=== PATIENT | female | born 1990 | race Caucasian/White ===

== ENCOUNTER 2025-02-16 23:33 | Emergency (ER) | payer BC, SELFPAY ==
[2025-02-16 23:35] VITALS: BP 128/84; PULSE 86; RESP 20; TEMP 36.1; O2SAT 100; BMI 21.2
[2025-02-17 00:07] LABS: Appearance Urine Clear (Clear)
--- NOTE | 2025-02-17 00:09 | ED.ABDPAIN ---
HPI - Abdominal Pain General Time Seen by Provider: 00:09 Date Seen: 02/17/25 Chief Complaint: Abdominal Pain Stated Complaint: Left side abdominal pain Time Seen by Provider: 02/17/25 00:09 Source: patient History of Present Illness HPI narrative: Patient is a 34 year old female with significant past history who presents to the emergency department for evaluation of abdominal pain. Patient reports that around 11:00 p.m. tonight she had sudden onset of severe left-sided abdominal pain and flank/back pain. Patient states that she was getting ready for bed when pain started. Patient describes the pain as a severe constant pain with intermittent sharp stabbing pains. Patient reports nausea and vomiting prior to arrival. Denies any fever, chills, chest pain, cough, shortness of breath. Patient denies any dysuria or hematuria however does report some urinary urgency/frequency. No medications prior to arrival, no other complaints. Related Data Home Medications ?Medication ?Instructions ?Recorded ?Confirmed acetaminophen [Tylenol] PO 06/24/24 06/24/24 Allergies Allergy/AdvReac Type Severity Reaction Status Date / Time No Known Drug Allergies Allergy Verified 06/24/24 09:12 Review of Systems Narrative Past medical history, past surgical history, medications, allergies, family history, and social history were reviewed with the patient. No additional pertinent items. A medically appropriate review of systems was performed with pertinent positives and negatives noted in HPI, all other systems negative. Exam Narrative: Exam Narrative: General: Afebrile, in distress secondary to pain, lying on her stomach HEENT: Normocephalic, atraumatic, conjunctiva normal. MMM Neck: non-tender, supple Cardio: regular rate. regular rhythm Resp: Normal work of breathing, no respiratory distress, lungs clear bilaterally, no wheezing, rhonchi, rales Chest/Back: no visual signs of trauma, no midline tenderness,+ left CVA TTP Abdomen: soft, non distension, no tenderness, no rebound, guarding, no peritoneal signs Neuro: alert and fully oriented. CN II-XII grossly intact. Grossly normal strength and sensation in all extremities. MSK: no deformities. Normal range of motion Integumentary/Skin: no rash visualized, normal color Psych: normal affect, normal behavior Const: Vital Signs, click to edit/add: Vital Signs - 24 hr 02/16/25 23:35 02/17/25 01:36 02/17/25 02:33 Temperature 97.0 F L Pulse Rate 88 Pulse Rate [Left P ulse Oximeter] 86 68 Respiratory Rate 20 16 Blood Pressure Blood Pressure [Ri ght Upper Arm] 128/84 124/64 Pulse Oximetry 100 99 97 Oxygen Delivery Me thod Room Air Room Air 02/17/25 03:05 02/17/25 03:06 02/17/25 03:08 Temperature Pulse Rate 97 95 96 Pulse Rate [Left P ulse Oximeter] Respiratory Rate Blood Pressure 122/80 Blood Pressure [Ri ght Upper Arm] Pulse Oximetry 94 98 100 Oxygen Delivery Me thod Course Course ED Course: Patient is a 34 year old female with significant past history who presents to the emergency department for evaluation of abdominal pain. Upon arrival patient is nontoxic appearing, afebrile, in distress secondary to pain. Patient hemodynamically stable vital signs within normal limits. Differential diagnosis includes but is not limited to versus ectopic versus cystitis versus pyelonephritis versus nephrolithiasis versus diverticulitis versus colitis versus pancreatitis versus less likely appendicitis versus obstruction among others. Upon arrival patient was treated with IV Zofran, Toradol, 1 L IV fluid bolus. Comprehensive labs remarkable with no leukocytosis white blood cell count 7.9, hemoglobin 10.7, urinalysis with negative test, no evidence of acute infection, positive for blood. Potassium slightly low at 3.3, otherwise no acute metabolic or electrolyte abnormality, no transaminitis. Potassium replaced in ED. I personally reviewed interpreted CT scan them and pelvis which demonstrates punctate stone at the ureterovesicular junction with no significant hydroureter nephrosis. There is a 3.5 cm heterogeneous density in the right ovary possibly a hemorrhagic cyst. Patient treated with additional dose of zofran, IV dilaudid for pain. Given patient's abdominal pain, vomiting, will proceed with ultrasound to rule out torsion however suspect patient's symptoms are most likely secondary to stone. I personally reviewed and interpreted pelvic ultrasound which demonstrates multiple bilateral complex appearing cyst. Overall low clinical concern for TOA/infection. Patient's clinical presentation is most likely consistent with ureteral stone. I discussed results with patient at this time patient is agreeable to follow-up, recommend repeat ultrasound in 6-12 weeks. I discussed results with patient on re-evaluation patient reports significant improvement of symptoms, tolerating p.o. water and crackers without difficulty. Patient feels comfortable discharge home with close outpatient follow-up. Will discharge with Tylenol, ibuprofen, oral hydration, urinary strainer. Patient sent with [facility] prescriptions for Zofran, oxycodone as needed for severe pain. Encouraged close outpatient follow-up and strict return precautions discussed if high fever, severe pain, persistent vomiting, or any worsening symptoms. Patient understands and agrees the plan. Vital Signs Vital signs: Initial Vital Signs Temperature 97.0 F L 02/16/25 23:35 Temperature Source Temporal Artery Scan 02/16/25 23:35 Pulse Rate 86 02/16/25 23:35 Pulse Rhythm Regular 02/16/25 23:35 Respiratory Rate 20 02/16/25 23:35 Blood Pressure 128/84 02/16/25 23:35 Blood Pressure Mean 98 02/16/25 23:35 Blood Pressure Position Sitting 02/16/25 23:35 Pulse Oximetry 100 02/16/25 23:35 Oxygen Delivery Method Room Air 02/16/25 23:35 Vital Signs Temperature 97.0 F L 02/16/25 23:35 Pulse Rate 86 02/16/25 23:35 Respiratory Rate 20 02/16/25 23:35 Blood Pressure 128/84 02/16/25 23:35 Pulse Oximetry 100 02/16/25 23:35 Oxygen Delivery Method Room Air 02/16/25 23:35 Temperature 97.0 F L 02/16/25 23:35 Pulse Rate 96 02/17/25 03:08 Respiratory Rate 16 02/17/25 01:36 Blood Pressure 122/80 02/17/25 03:08 Pulse Oximetry 100 02/17/25 03:08 Oxygen Delivery Method Room Air 02/17/25 01:36 Medications Administered Medications: Generic Name Dose Route Start Last Admin Trade Name Freq PRN Reason Stop Dose Admin Ondansetron HCl 4 mg 02/17/25 02:10 02/17/25 02:16 Ondansetron 2 Mg/Ml Inj IVP 02/17/25 02:11 4 mg ONCE ONE Administration Potassium Chloride 40 meq 02/17/25 03:13 02/17/25 03:39 Potassium Chloride 10 Meq Capsule Er PO 02/17/25 03:14 40 meq ONCE ONE Administration Tamsulosin HCl 0.4 mg 02/17/25 03:13 02/17/25 03:39 Tamsulosin Hcl 0.4 Mg Capsule PO 02/17/25 03:14 0.4 mg ONCE ONE Administration Discontinued Medications Generic Name Dose Route Start Last Admin Trade Name Baldomero PRN Reason Stop Dose Admin Hydromorphone HCl 0.5 mg 02/17/25 00:46 02/17/25 02:16 Hydromorphone 0.5 Mg/0.5 Ml Inj IVP 02/17/25 00:47 0.5 mg ONCE ONE Administration Sodium Chloride 1,000 mls @ 1,000 mls/hr 02/17/25 00:30 02/17/25 01:50 0.9 % Sodium Chloride 1000 Ml IV 02/17/25 01:29 Infused .Q1H W[facility] Infusion Ketorolac Tromethamine 15 mg 02/17/25 00:16 02/17/25 00:36 Ketorolac 15 Mg/Ml Inj IVP 02/17/25 00:17 15 mg ONCE ONE Administration Ondansetron HCl 4 mg 02/17/25 00:16 02/17/25 00:36 Ondansetron 2 Mg/Ml Inj IVP 02/17/25 00:17 4 mg ONCE ONE Administration MDM - Abdominal Pain Lab Data Labs: Lab Results 02/17/25 02/17/25 Range/Units 00:05 00:25 WBC 7.97 (4.50-11.00) K/uL RBC 4.19 (4.00-5.20) m/uL Hgb 10.7 L (12.0-16.0) gm/dL Hct 33.0 (33.0-51.0) % MCV 79 L (80-100) fL MCH 26 (26-34) pg MCHC 32 (32-36) gm/dL RDW Coeff of Red 14.8 (11.5-15.5) % Plt Count 317 (140-440) K/uL Neut % (Auto) 62.7 (42.0-72.0) % Lymph % (Auto) 26.3 (20-44) % [place] % (Auto) 6.5 (0.0-11.0) % Eos % (Auto) 4.0 (0.0-7.0) % Baso % (Auto) 0.4 (0.0-3.0) % Neut # (Auto) 4.99 (1.7-7.0) K/uL Lymph # (Auto) 2.10 (0.90-2.90) K/uL [place] # (Auto) 0.50 (0.00-0.90) K/UL Eos # (Auto) 0.32 (0.00-0.50) K/uL Baso # (Auto) 0.03 (0.00-0.30) K/uL Abs Immat Gran (auto) 0.01 (0.00-0.30) K/uL Imm/Tot Granulo (auto) 0.1 % Sodium 137 (135-149) mmol/L Potassium 3.3 L (3.6-5.1) mmol/L Chloride 104 (96-114) mmol/L Carbon Dioxide 25 (20-32) mmol/L Anion Gap 8 (7-15) mEq/L BUN 20 (5-24) mg/dL Creatinine 0.9 (0.5-1.5) mg/dL Estimated Creat Clear 69.00 Estimated GFR 86 ml/min Glucose 119 H (60-115) mg/dL Calcium 9.5 (8.4-10.6) mg/dL Total Bilirubin 1.1 (0.1-1.5) mg/dL AST 27 (12-35) U/L ALT 15 (4-35) U/L Alkaline Phosphatase 47 (40-150) U/L Total Protein 7.4 (6.0-8.3) g/dL Albumin 4.4 (3.3-5.0) g/dL Lipase 124 (23-300) U/L Urine Color Yellow (Yellow) Urine Appearance Clear (Clear) Urine pH 8.5 (5.0-8.5) Ur Specific [place] 1.015 (1.000-1.030) Urine Protein Negative (Negative) Urine Glucose (UA) Negative (Negative) Urine Ketones Negative (Negative) Urine Blood 2+ A (Negative) Urine Nitrite Negative (Negative) Urine Bilirubin Negative (Negative) Urine Urobilinogen 0.2 (0.2-1.0) Ur Leukocyte Esterase Negative (Negative) Urine RBC 10-25 A (0-2) Urine WBC 2-5 (0-5) Ur Squamous Epith Cells Few (None-Few) Amorphous Sediment Few A (None) Urine Bacteria Few A (None) Urine HCG, Qual Negative (Negative) Discharge Plan Discharge Clinical Impression: Left ureteral stone, Hypokalemia, Nausea & vomiting, Ovarian cyst Patient Disposition: Home, Self-Care Condition: Improved Additional Instructions: Please follow-up with your primary care provider in the next 3-5 days for further evaluation and follow-up. Please call to schedule an appointment. We also recommend following up for repeat pelvic ultrasound in 6-12 weeks regarding multiple bilateral complex cyst. Please rest, drink plenty of fluids. Please strain your urine. Please alternate taking ibuprofen 600 mg and Tylenol 1000 mg every 6 hours as needed for pain. If you alternate these 2 medications you should be taking something every 3 hours. Please take Zofran as needed for nausea and vomiting. Please take oxycodone 1 tablet every 4-6 hours as needed for severe pain. Please return to the emergency department if he develops high fever, severe pain, persistent vomiting, or any worsening symptoms. It was a pleasure taking care of you today. We hope you feel better soon. Prescriptions: No Action acetaminophen [Tylenol] PO Follow Up/Referrals: Provider,Not a Local [Primary Care Provider, Family Practice] Stand Alone Forms: [employer] Info Instructions
[2025-02-17 00:32] LABS: Hematocrit 33.0 % (33.0-51.0); Hemoglobin* 10.7 gm/dL (12.0-16.0); Immature Granulocytes Abs Auto 0.01 K/uL (0.00-0.30); Immature Granulocytes Pct Auto 0.1 %; Lymphocytes Absolute Auto 2.10 K/uL (0.90-2.90); Mean Corpuscular HGB Conc 32 gm/dL (32-36); Mean Corpuscular Hemoglobin 26 pg (26-34); Mean Corpuscular Volume 79 fL (80-100); RDW Coefficient of Variation % 14.8 % (11.5-15.5); Red Blood Count 4.19 m/uL (4.00-5.20); White Blood Count* 7.97 K/uL (4.50-11.00)
--- NOTE | 2025-02-17 00:33 | CRLHL7_ITS ---
For Patients: As a result of the Century Cures Act, medical imaging exams and procedure reports are released immediately into your electronic medical record. You may view this report before your referring provider. If you have questions, please contact your health care provider. INDICATION: Left flank pain, left abdominal pain. TECHNIQUE: CT abdomen and pelvis without contrast. COMPARISON: None. FINDINGS: Lower chest: Unremarkable. Liver: Normal in size and attenuation. No suspicious masses. Gallbladder and bile ducts: No stones or inflammation. No biliary dilatation. Pancreas: Unremarkable. No mass or inflammation. Spleen: Scattered calcified granulomata. Adrenal glands: Normal in size. No nodules. Kidneys: Punctate stone at the left ureterovesicular junction. No significant proximal hydroureteronephrosis. Unremarkable right kidney. GI tract: Unremarkable. Normal in caliber. No sign of mass or inflammation. Normal appendix. Vasculature: Abdominal aorta is normal in caliber. Lymph nodes: No lymphadenopathy. Peritoneum/Abdominal Wall: Unremarkable. No free air or significant free fluid. Pelvis: Unremarkable. No pelvic masses. Retroverted uterus. Bones: Mild dextroconvex curvature of the spine. IMPRESSION: 1. Punctate stone at the left ureterovesicular junction without significant associated proximal hydroureteronephrosis. 2. 3.5 cm heterogeneous mixed density lesion within right ovary, possibly a hemorrhagic cyst. This could be further evaluated with pelvic ultrasound, if clinical concern persists. Please note that all CT scans at this facility use dose modulation, iterative reconstruction, and/or weight-based dosing when appropriate to reduce radiation dose to as low as reasonably achievable. Dictated by Presley Cheek MD @ 02/17/2025 1:29:24 AM (Electronically Signed)
[2025-02-17 00:35] LABS: Slide Review Reflex No
[2025-02-17 00:36] LABS: Ur HCG Qualitative* Negative (Negative)
[2025-02-17] MEDS: ONDANSETRON 2 MG/ML inj 4 MG IVP ×2 (00:36→02:16)
[2025-02-17 00:42] LABS: Chloride* 104 mmol/L (96-114)
[2025-02-17 00:43] LABS: Albumin* 4.4 g/dL (3.3-5.0); Potassium* 3.3 mmol/L (3.6-5.1); Sodium* 137 mmol/L (135-149)
[2025-02-17 00:45] LABS: Alanine Aminotransferase* 15 U/L (4-35); Anion Gap 8 mEq/L (7-15); Aspartate Amino Transferase* 27 U/L (12-35); Blood Urea Nitrogen* 20 mg/dL (5-24); Carbon Dioxide* 25 mmol/L (20-32); Creatinine* 0.9 mg/dL (0.5-1.5); Est. Creatinine Clearance* 69.00; Estimated Glomerular Filt Rate 86 ml/min
[2025-02-17 00:46] LABS: Alkaline Phosphatase* 47 U/L (40-150); Bilirubin Total* 1.1 mg/dL (0.1-1.5); Calcium* 9.5 mg/dL (8.4-10.6); Glucose* 119 mg/dL (60-115); Total Protein* 7.4 g/dL (6.0-8.3)
[2025-02-17 01:36] VITALS: BP 124/64; PULSE 68; RESP 16; O2SAT 99
--- NOTE | 2025-02-17 02:16 | CRLHL7_ITS ---
For Patients: As a result of the Century Cures Act, medical imaging exams and procedure reports are released immediately into your electronic medical record. You may view this report before your referring provider. If you have questions, please contact your health care provider. Indication: Lower abdominal pain, right ovarian cyst on CT Technique: Transabdominal and transvaginal pelvic ultrasound. Grayscale and color Doppler imaging utilized. Spectral waveform analysis utilized. Comparison: Same day CT Findings: Uterus: 8.0 x 4.7 x 5.3 cm. No masses or other significant parenchymal abnormality appreciated. Endometrium: 11 mm. Fluid present. Slight heterogeneity and possible polyps. Right ovary: 6.0 x 3.5 x 4.0 cm. Complex debris-filled cyst measures 2.8 x 2.6 x 1.6 centimeters. Doppler flow detected. Left ovary: 5.8 x 3.3 x 3.2 cm. Complex debris-filled cyst measures 1.9 x 1.1 x 2.2 centimeters. Heterogeneous solid-appearing area measures 2.5 x 2.2 x 2.0 centimeters. Doppler flow detected. Other: Free fluid present. Impression: 1. Multiple bilateral complex appearing cysts with internal debris. Some of these may represent evolving an involuting hemorrhagic cysts but can be correlated with clinical and laboratory symptoms if there is concern for infection/TOA. Note is also made of a heterogeneous solid-appearing focus within the left ovary measuring 2.5 centimeters. Follow-up ultrasound in 6-12 weeks recommended. 2. Fluid and heterogeneity within the endometrium along with possible polyps, which can be reassessed on follow-up ultrasound. Dictated by Dk Miles MD @ 02/17/2025 3:47:34 AM (Electronically Signed)
[2025-02-17 02:33] VITALS: PULSE 88; O2SAT 97
[2025-02-17 03:05] VITALS: PULSE 97; O2SAT 94
[2025-02-17 03:06] VITALS: PULSE 95; O2SAT 98
[2025-02-17 03:08] VITALS: BP 122/80; PULSE 96; O2SAT 100
--- NOTE | 2025-02-17 03:10 | ED.NURSE ---
pt given water and crackers per MD. pt tolerated both
[2025-02-17] MEDS: TAMSULOSIN HCL 0.4 MG CAPSULE PO (03:39)
[2025-02-17] MEDS: POTASSIUM CHLORIDE 10 MEQ CAPSULE ER 40 MEQ PO (03:39)
== END 2025-02-17 04:13 | disposition home or self-care (01) ==
PROVIDERS: Emergency Provider Emergency Medicine
DX: N20.1 Calculus of ureter (principal); R11.2 Nausea with vomiting, unspecified; N83.201 Unspecified ovarian cyst, right side
CPT/HCPCS: 36415; 74176; 76830; 76856; 80053; 81001; 81025; 83690; 85025; 87086; 93976; 96374; 96375; 99284; 99285; A9270; J1171; J1885; J2405; J7030

== ENCOUNTER 2025-04-13 09:32 | Outpatient (CLI) | payer BC, SELFPAY | END 2025-04-13 09:33 | disposition home or self-care (01) | PROVIDERS: PCP Family Medicine; Visit Provider Family Medicine | DX: E87.6 Hypokalemia (principal); D64.9 Anemia, unspecified; R53.83 Other fatigue; Z13.6 Encounter for screening for cardiovascular disorders; Z13.21 Encounter for screening for nutritional disorder | CPT/HCPCS: 80053; 80061; 82607; 82728; 83540; 83550; 84443 ==

== ENCOUNTER 2025-04-14 12:00 | Outpatient (CLI) | payer BC, SELFPAY ==
--- NOTE | 2025-04-14 12:15 | CRLHL7_ITS ---
For Patients: As a result of the Century Cures Act, medical imaging exams and procedure reports are released immediately into your electronic medical record. You may view this report before your referring provider. If you have questions, please contact your health care provider. INDICATION: Follow-up ovarian cysts COMPARISON: 02/17/2025 TECHNIQUE: 2D mratínez-scale and color Doppler images were acquired of the pelvis using a transabdominal and transvaginal approach. Transvaginal imaging performed to better visualize the endometrial stripe and ovaries. FINDINGS: Sonographic images demonstrate a normal size and smooth outer contour of the uterus. Uterus measures 8.0 cm in length by 4.4 cm in AP diameter by 5.8 cm in transverse dimension. The myometrium has a normal uniform echotexture. The endometrial lining measures 13.3 mm in composite thickness. The right ovary measures 6.0 x 3.2 x 4.2 cm in size and the left ovary measures 3.8 x 5.9 x 4.0 cm. The ovaries demonstrate normal arterial and venous blood flow on color Doppler analysis. There are no suspicious fluid collections within the cul-de-sac. There is a complex left ovarian cyst which measures 2.3 x 1.8 x 2.3 cm without internal blood flow and has the appearance of a hemorrhagic cyst, previously measuring 2.5 cm. There is a complex left ovarian cyst with diffuse low-level internal echoes measuring 3.5 x 1.9 x 2.3 cm. No internal blood flow. A simple circumscribed right ovarian cyst measures 2.6 x 3.1 x 2.7 cm. An additional right ovarian cyst is present which contains thin internal septations and measures 2.9 x 1.7 x 2.6 cm. No internal blood flow. IMPRESSION: Benign bilateral ovarian cysts including a hemorrhagic cyst within each ovary, a simple cyst on the right and an endometrioma on the left. Dictated by Tod White MD @ 04/14/2025 2:29:26 PM (Electronically Signed)
== END 2025-04-14 12:01 | disposition home or self-care (01) ==
LOC: US 12:01
PROVIDERS: PCP Family Medicine; Visit Provider Family Medicine
DX: N83.291 Other ovarian cyst, right side (principal); N83.292 Other ovarian cyst, left side
CPT/HCPCS: 76830; 76856

== ENCOUNTER 2025-06-02 10:44 | Outpatient (CLI) | payer BC, SELFPAY ==
[2025-06-04 19:10] LABS: HPV Source Cervical/Vag
[2025-06-07 08:41] LABS: Pap Test Digital Imaging Done
== END 2025-06-02 10:45 | disposition home or self-care (01) ==
PROVIDERS: PCP Family Medicine; Visit Provider Family Medicine
DX: Z12.4 Encounter for screening for malignant neoplasm of cervix (principal)
CPT/HCPCS: 87624; 87625; 88141; 88142; 88175

== ENCOUNTER 2025-06-15 09:07 | Outpatient (CLI) | payer BC, SELFPAY | END 2025-06-15 09:08 | disposition home or self-care (01) | LOC: NFLDREF 06-17 16:22 | PROVIDERS: PCP Family Medicine; Referring Provider Family Medicine; Visit Provider Family Medicine | DX: D50.9 Iron deficiency anemia, unspecified (principal) | CPT/HCPCS: 82728; 83540; 83550 ==

== ENCOUNTER 2025-08-10 09:51 | Outpatient (CLI) | payer BC, SELFPAY | END 2025-08-10 09:52 | disposition home or self-care (01) | LOC: NFLDREF 09:52 | PROVIDERS: PCP Family Medicine; Visit Provider Physician Assistant | DX: D50.9 Iron deficiency anemia, unspecified (principal) | CPT/HCPCS: 82728 ==

== ENCOUNTER 2025-08-10 11:57 | Outpatient (CLI) | payer BC, SELFPAY ==
--- NOTE | 2025-08-10 12:15 | CRLHL7_ITS ---
For Patients: As a result of the Century Cures Act, medical imaging exams and procedure reports are released immediately into your electronic medical record. You may view this report before your referring provider. If you have questions, please contact your health care provider. INDICATION: Other ovarian cyst, right side COMPARISON: 04/14/2025 TECHNIQUE: 2D martínez-scale and color Doppler images were acquired of the pelvis using a transabdominal and transvaginal approach. Transvaginal imaging performed to better visualize the endometrial stripe and ovaries. FINDINGS: Sonographic images demonstrate a normal size and smooth outer contour of the uterus. Uterus measures 7.6 cm in length by 4.8 cm in AP diameter by 6.1 cm in transverse dimension. The myometrium has a normal uniform echotexture. The endometrial lining measures 13 mm in composite thickness. The right ovary measures 6.0 x 4.9 x 5.6 cm in size and the left ovary measures 4.0 x 2.5 x 2.7 cm. The ovaries demonstrate normal arterial and venous blood flow on color Doppler analysis. Mild pelvic free fluid. Complex right ovarian cyst is present with internal reticular echoes and measures 4.9 x 3.1 x 3.5 cm. Hypoechoic right ovarian cyst measures 2.4 x 1.1 x 3.2 cm. No internal color flow. IMPRESSION: Hemorrhagic right ovarian cyst measures 4.9 x 3.1 x 3.5 cm. Benign hypoechoic right ovarian cyst measures 2.4 x 1.1 x 3.2 cm. Dictated by Tod White MD @ 08/10/2025 1:11:24 PM (Electronically Signed)
== END 2025-08-10 11:58 | disposition home or self-care (01) ==
LOC: US 11:58
PROVIDERS: PCP Family Medicine; Visit Provider Physician Assistant
DX: N83.291 Other ovarian cyst, right side (principal); N83.201 Unspecified ovarian cyst, right side; D50.9 Iron deficiency anemia, unspecified
CPT/HCPCS: 76830; 76856; 82728